=== PATIENT | female | born 1930 | race Caucasian/White ===

== ENCOUNTER → 2016-11-26 | Outpatient (CLI) | payer MEDICARE ==
[2016-11-26 08:40] LABS: BASOPHILS % (AUTO) 0 % (0-2); EOSINOPHILS # (AUTO) 0.1 10^3uL; EOSINOPHILS % (AUTO) 1 % (0-4); LYMPHOCYTES # (AUTO) 0.4 X10^3; MEAN CORPUSCULAR HEMOGLOBIN 31.1 PG (26.0-34.0); MEAN CORPUSCULAR HGB CONC 31.8 g/dL (31.0-37.0); MEAN PLATELET VOLUME 8.7 FL (6.0-9.5); MONOCYTES # (AUTO) 0.6 X10^3; MONOCYTES % (AUTO) 12 % (3-11); NEUTROPHILS # (AUTO) 4.2 X10^3; NEUTROPHILS % (AUTO) 79 % (51-67); PLATELET COUNT 228 10^3uL (150-450); WHITE BLOOD COUNT 5.34 10^3uL (4.0-11.0)
[2016-11-26 08:41] LABS: MEAN CORPUSCULAR VOLUME 98 FL (80-100)
[2016-11-26 08:51] LABS: ALBUMIN 3.9 g/dL (3.4-5.0); CALCULATED IONIZED CALCIUM 4.1 mg/dL (3.8-4.6); TOTAL PROTEIN 6.7 g/dL (6.4-8.5)
== END ==
LOC: RAD 08:17
PROVIDERS: ATTEND Internal Medicine Hematology & Oncology
DX: C50.812 Malignant neoplasm of overlapping sites of left female breast (principal); C79.51 Secondary malignant neoplasm of bone
CPT/HCPCS: 36415; 78306; 80053; 85025; 86300; A9503

== ENCOUNTER → 2016-11-27 | Outpatient (CLI) | payer MEDICARE | LOC: RAD 07:39 | PROVIDERS: ATTEND Internal Medicine Hematology & Oncology | DX: C50.812 Malignant neoplasm of overlapping sites of left female breast (principal); C79.51 Secondary malignant neoplasm of bone | CPT/HCPCS: 71260; 74178; Q9967 ==

== ENCOUNTER → 2017-03-25 | Outpatient (CLI) | payer MEDICARE ==
[2017-03-25 19:46] LABS: UNBOUND IRON CONTENT 192 ug/dl (126-382)
[2017-03-25 22:23] LABS: IRON 77 ug/dL (50-170)
[2017-03-25 22:56] LABS: CA 27.29 C SEE REF LAB REPORT
== END ==
LOC: LAB 10:20
PROVIDERS: ATTEND Internal Medicine Hematology & Oncology
DX: C50.812 Malignant neoplasm of overlapping sites of left female breast (principal); R53.83 Other fatigue
CPT/HCPCS: 82728; 83540; 83550; 86300